=== PATIENT | male | born 1955 | race Caucasian/White ===

== ENCOUNTER 2016-09-06 09:56 | Emergency (ER) | payer OTHER ==
[~2016-09-06] VITALS: Ht 185.4 cm; Wt 97.0 kg
[2016-09-06 09:57] VITALS: BP 126/71; PULSE 74; RESP 20; TEMP 97.7; O2SAT 99
--- NOTE | 2016-09-06 10:10 | PD ---
HPI Chief Complaint: Flank/Kidney Pain Time Seen by Provider: 10:09 Travel History International Travel<30 days: No Contact w/Intl Traveler<30days: No Traveled to known affect area: No History of Present Illness HPI 61-year-old male presents to the emergency Department with complaint of left flank pain started yesterday. Patient reports doing housework yesterday but does not associate this with onset of his pain. History of kidney stones 20 years ago. No abdominal surgical history. Denies fever, vomiting. Reports difficulty urinating. Denies hematuria. Reports tobacco use daily. Reports drinking 8 beers 2 days weekly. Denies illicit drug use. No known allergies. Has no other medical complaints. No other modifying factors or associated signs and symptoms. [facility] Social History Tobacco Use: Yes Allergies-Medications (Allergen,Severity, Reaction): Coded Allergies: No Known Allergies (Unverified , 09/06/16) Reported Meds & Prescriptions Reported Meds & Active Scripts Active No Active Prescriptions or Reported Medications Review of Systems Except as stated in HPI: all other systems reviewed are Neg Physical Exam Narrative GENERAL: Well-nourished, well-developed female patient, in no acute distress; afebrile, nontoxic-appearing SKIN: Warm and dry. No rash. HEAD: Atraumatic. Normocephalic. EYES: Pupils equal and round. No scleral icterus. No injection or drainage. ENT: Mucosa pink and moist. NECK: Trachea midline. CARDIOVASCULAR: Regular rate and rhythm. No murmur appreciated. RESPIRATORY: No accessory muscle use. Clear to auscultation. Breath sounds equal bilaterally. GASTROINTESTINAL: Abdomen soft, tenderness to left lower quadrant, nondistended. Hepatic and splenic margins not palpable. Bowel sounds are active 4 quadrants. MUSCULOSKELETAL: No obvious deformities. No clubbing. No cyanosis. No edema. BACK: Left CVA tenderness NEUROLOGICAL: Awake and alert. Oriented 3. No obvious cranial nerve deficits. Motor grossly within normal limits. Normal speech. Moves all extremities. 5/5 strength to all extremities. PSYCHIATRIC: Appropriate mood and affect; insight and judgment normal. Data Data Last Documented VS Vital Signs Date Time Temp Pulse Resp B/P Pulse Ox O2 Delivery O2 Flow Rate FiO2 09/06/16 11:01 16 09/06/16 10:39 98 Room Air 09/06/16 09:57 97.7 74 126/71 Orders Complete Blood Count With Diff (09/06/16 10:16) Comprehensive Metabolic Panel (09/06/16 10:16) Lipase (09/06/16 10:16) Prothrombin Time / Inr (Pt) (09/06/16 10:16) Act Partial Throm Time (Ptt) (09/06/16 10:16) Urinalysis - C+S If Indicated (09/06/16 10:16) Ct Abd/Pel W/O Iv Contrast (09/06/16 10:16) Iv Access Insert/Monitor (09/06/16 10:16) Ecg Monitoring (09/06/16 10:16) Oximetry (09/06/16 10:16) Sodium Chloride 0.9% Flush (Ns Flush) (09/06/16 10:30) Strain Urine PRN (09/06/16 10:24) Morphine Inj (Morphine Inj) (09/06/16 10:30) Ondansetron Inj (Zofran Inj) (09/06/16 10:30) Sodium Chlor 0.9% 1000 Ml Inj (Ns 1000 M (09/06/16 10:30) Labs Laboratory Tests Test 09/06/16 10:16 White Blood Count 8.1 TH/MM3 Red Blood Count 4.90 MIL/MM3 Hemoglobin 15.4 GM/DL Hematocrit 44.7 % Mean Corpuscular Volume 91.3 FL Mean Corpuscular Hemoglobin 31.5 PG Mean Corpuscular Hemoglobin 34.5 % Concent Red Cell Distribution Width 12.9 % Platelet Count 235 TH/MM3 Mean Platelet Volume 8.8 FL Neutrophils (%) (Auto) 40.2 % Lymphocytes (%) (Auto) 43.0 % Monocytes (%) (Auto) 12.6 % Eosinophils (%) (Auto) 3.2 % Basophils (%) (Auto) 1.0 % Neutrophils # (Auto) 3.3 TH/MM3 Lymphocytes # (Auto) 3.5 TH/MM3 Monocytes # (Auto) 1.0 TH/MM3 Eosinophils # (Auto) 0.3 TH/MM3 Basophils # (Auto) 0.1 TH/MM3 CBC Comment DIFF FINAL Differential Comment Prothrombin Time 10.4 SEC Prothromb Time International 0.9 RATIO Ratio Activated Partial 26.9 SEC Thromboplast Time Urine Color YELLOW Urine Turbidity CLEAR Urine pH 5.0 Urine Specific [place] 1.006 Urine Protein NEG mg/dL Urine Glucose (UA) NEG mg/dL Urine Ketones NEG mg/dL Urine Occult Blood NEG Urine Nitrite NEG Urine Bilirubin NEG Urine Urobilinogen LESS THAN 2.0 MG/DL Urine Leukocyte Esterase NEG Urine WBC 1 /hpf Urine Amorphous Sediment RARE Microscopic Urinalysis Comment CULT NOT INDICATED Sodium Level 138 MEQ/L Potassium Level 4.1 MEQ/L Chloride Level 107 MEQ/L Carbon Dioxide Level 24.0 MEQ/L Anion Gap 7 MEQ/L Blood Urea Nitrogen 9 MG/DL Creatinine 0.82 MG/DL Estimat Glomerular Filtration 96 ML/MIN Rate Random Glucose 84 MG/DL Calcium Level 9.0 MG/DL Total Bilirubin 0.3 MG/DL Aspartate Amino Transf 33 U/L (AST/SGOT) Alanine Aminotransferase 40 U/L (ALT/SGPT) Alkaline Phosphatase 89 U/L Total Protein 7.7 GM/DL Albumin 3.9 GM/DL Lipase 208 U/L [facility] Medical Decision Making Medical Screen Exam Complete: Yes Emergency Medical Condition: Yes Medical Record Reviewed: Yes Differential Diagnosis Nephrolithiasis, pyelonephritis, pancreatitis Narrative Course 61-year-old male with left flank pain since yesterday. History of kidney stones. Afebrile and nontoxic-appearing. Denies fever, vomiting. IV site established. CBC, CMP, lipase, urinalysis, CT abdomen, normal saline bolus ordered. Dr. Rojas ordered morphine for pain. 1131: CT abdomen/pelvis concludes: Last 24 hours Impressions Abdomen/Pelvis CT 09/06/16 1016 Signed Impressions: Service Date/Time: Tuesday, September 06, 2016 10:40 - CONCLUSION: Essentially unremarkable study. K. Byron Hou MD CBC, CMP, lipase, urinalysis, coags unremarkable. Robaxin prescribed for home for possible muscle strain. Instructed patient to follow up with primary care provider. Patient verbalizes understanding and agreement with treatment plan. Patient is medically cleared and stable for discharge. Discussed reasons to return to the emergency department. Patient agrees with treatment plan. The patients vital signs are stable and the patient is stable for outpatient follow- up and treatment. Patient discharged home, stable and in no acute distress. Diagnosis Primary Impression: Left flank pain Referrals: Primary Care Physician Patient Instructions: Flank Pain (ED), General Instructions, Muscle Spasm (ED) , Muscle Strain (ED) Additional Instructions: Tylenol or ibuprofen as directed and as needed for pain Robaxin as prescribed and as needed for muscle spasms Heating pad and/or ice to affected area to reduce pain Avoid aggravating activities; increase activity as tolerated Follow-up with primary care provider Return to emergency department immediately with worsening of symptoms Med/Other Pt SpecificInfo: Prescription(s) given Scripts Methocarbamol (Robaxin)500 Mg Cva576 Mg PO QID PRN (MUSCLE SPASM) #30 TAB Ref 0 Prov:Dannielle Sweet 09/06/16 Disposition: 01 DISCHARGE HOME Condition: Stable Dannielle Sweet Sep 06, 2016 10:09
[2016-09-06] MEDS ORDERED: SODIUM CHLORIDE 0.9% FLUSH 10 ML FLUSH IV FLUSH PRN (10:30)
[2016-09-06] MEDS ORDERED: SODIUM CHLOR 0.9% 1000 ML INJ 1,000 ML IV ONE (10:30)
[2016-09-06] MEDS ORDERED: ONDANSETRON HCL 4 MG/2 ML VIAL IV PUSH ONE (10:30)
[2016-09-06] MEDS ORDERED: MORPHINE SULFATE 4 MG/ML INJ IV PUSH ONE (10:30)
[2016-09-06 10:36] LABS: AUTOMATED NEUTROPHIL # 3.3 TH/MM3 (1.8-7.7); BASOPHIL # 0.1 TH/MM3 (0-0.2); EOSINOPHIL # 0.3 TH/MM3 (0-0.4); EOSINOPHIL % 3.2 % (0.0-4.0); HEMATOCRIT 44.7 % (39.0-51.0); HEMO FLAGS DIFF FINAL; LYMPHOCYTE # 3.5 TH/MM3 (1.0-4.8); MEAN CELL VOLUME 91.3 FL (80.0-100.0); MEAN CORPUSCULAR HEMOGLOBIN 31.5 PG (27.0-34.0); MEAN CORPUSCULAR HGB CONC 34.5 % (32.0-36.0); MONO % 12.6 % (0.0-8.0); NEUT % 40.2 % (16.0-70.0); PLATELET COUNT 235 TH/MM3 (150-450); RED CELL DISTRIBUTION WIDTH 12.9 % (11.6-17.2); WHITE BLOOD COUNT 8.1 TH/MM3 (4.0-11.0)
[2016-09-06 10:39] VITALS: RESP 16; O2SAT 98
[2016-09-06 10:49] LABS: APTT (PATIENT) 26.9 SEC (24.3-30.1); INTERNATIONAL NORMALIZED RATIO 0.9 RATIO; PROTHROMBIN TIME - PATIENT 10.4 SEC (9.8-11.6)
[2016-09-06 10:51] LABS: ALT (GPT) 40 U/L (12-78)
[2016-09-06 10:53] LABS: BLOOD, URINE NEG (NEG); COMMENT (UR) CULT NOT INDICATED; CULTURE IF INDICATED CULT NOT INDICATED; GLUCOSE,URINE NEG (NEG); KETONE, URINE NEG (NEG); NITRITE,URINE NEG (NEG); URINE COLOR YELLOW (YELLW/STRAW)
[2016-09-06 10:54] LABS: ALKALINE PHOSPHATASE 89 U/L (45-117); TOTAL BILIRUBIN ADULT 0.3 MG/DL (0.2-1.0)
[2016-09-06 11:00] LABS: ANION GAP 7 MEQ/L (5-15); AST (GOT) 33 U/L (15-37); BLOOD UREA NITROGEN 9 MG/DL (7-18); CHLORIDE 107 MEQ/L (98-107); GLOMERULAR FILTRATION RATE 96 ML/MIN (>89); POTASSIUM 4.1 MEQ/L (3.5-5.1); SODIUM (NA) 138 MEQ/L (136-145)
[2016-09-06 11:01] VITALS: RESP 16
--- NOTE | 2016-09-06 11:09 | RADRPT ---
EXAM DATE/TIME: 09/06/2016 10:40 [place] COMPARISON: No previous studies available for comparison. INDICATIONS : Left flank pain, decreased urine output. ORAL CONTRAST: No oral contrast ingested. RADIATION DOSE: 8.45 CTDIvol (mGy) MEDICAL HISTORY : None SURGICAL HISTORY : Hernia ENCOUNTER: Initial ACUITY: 1 day PAIN SCALE: 6/10 LOCATION: Left flank TECHNIQUE: Volumetric scanning of the abdomen and pelvis was performed. Using automated exposure control and adjustment of the mA and/or kV according to patient size, radiation dose was kept as low as reasonably achievable to obtain optimal diagnostic quality images. DICOM format image data is av ailable electronically for review and comparison. FINDINGS: CT Abdomen: The liver, spleen, pancreas, kidneys, adrenals are unremarkable. There is no evidence for any appreciable pathological adenopathy, free fluid, or bowel obstruction. There is no evidence for any stones in the kidneys or the course of the ureters on either side. There is no hydronephrosis. CT pelvis: There is no evidence for mass, abscess formation, or any significant adenopathy within the pelvis. The prostate gland is inhomogeneous and measures 4.2 x 5.0 cm in AP and transverse diameters and nonspecific.CONCLUSION: Essentially unremarkable study. Rachel Hou MD on September 06, 2016 at 10:55 Board Certified Radiologist. This report was verified electronically.
[2016-09-06] MEDS ORDERED: ROBA500T PO (11:33)
[2016-09-06 11:53] VITALS: BP 141/91
== END 2016-09-06 11:54 | disposition home or self-care (01) ==
LOC: NEPD 09:56
DX: R10.9 Unspecified abdominal pain (principal); Z72.0 Tobacco use
CPT/HCPCS: 74176; 80053; 81001; 83690; 85025; 85610; 85730; 96374; 96375; 99285; J2270; J2405; J7030